=== PATIENT | female | born 1960 | race Caucasian/White ===

== ENCOUNTER 2016-05-13 08:19 | Day surgery (SDC) | payer BC, MEDICAID ==
[2016-05-13] MEDS ORDERED: LIDOCAINE 2% MDV (20MG/ML) 20ML VIAL IV ONE (14:28)
[2016-05-13] MEDS ORDERED: PROPOFOL 10 MG/ML VIAL IV ONE (14:28)
[2016-05-13] MEDS ORDERED: MIDAZOLAM HCL 2MG/2ML VIAL IV ONE (14:28)
--- NOTE | 2016-05-16 14:11 | Operative Note ---
DATE OF SURGERY: 05/13/2016 SURGEON: Will Granados MD OPERATION: COLONOSCOPY. INDICATIONS: This is a 55-year-old male with history of colorectal cancer who presented for surveillance colonoscopy. POSTOPERATIVE DIAGNOSES: 1. Normal ileocolonic anastomosis. 2. A 2 mm sessile rectal polyp that was removed by cold biopsy forceps. 3. Grade 1 internal hemorrhoids. ANESTHESIA: Sedation is per Anesthesia. Pulse oximetry was monitored throughout the procedure to maintain O2 saturation of 90% or greater. Supplemental oxygen was administered via nasal cannula. Cardiac and vital signs were monitored throughout the duration of the procedure, and they were stable. The procedure of colonoscopy and risks and alternatives of the procedure, including the risk of bleeding and perforation, among others, were explained to the patient who voiced understanding and agreed to have the procedure done. Physical examination was performed, and the patient was found stable for sedation. PROCEDURE: The patient was placed in the left lateral position. Sedation was initiated. A digital rectal exam was performed and showed some mild external hemorrhoids with no palpable rectal masses. An Olympus PCF-180AL colonoscope was then inserted into the rectum under direct visualization. It was advanced to the cecum without difficulty. The ileocecal valve and appendiceal orifice were identified and photographed. The colonic mucosa was carefully examined upon introduction of the colonoscope. There were no lesions noted. The colonoscope was then advanced to the terminal ileum without any difficulty. The colonic mucosa was carefully examined upon introduction of the colonoscope. There were no lesions noted. The ileocolonic anastomosis was normal. The colonoscope was then withdrawn while carefully examining the colonic mucosal surfaces. No other lesions were noted. In the rectum, a 2 mm sessile polyp was noted and was removed by cold biopsy forceps. There were no other lesions noted. The colonoscope was then withdrawn and the procedure was terminated. The patient tolerated the procedure well without any immediate complications. He remained with stable vital signs and was transferred to the recovery room. RECOMMENDATIONS: 1. The patient should be on a high-fiber diet. 2. The patient is to have a surveillance colonoscopy for in 2 years. Thank you for allowing me to participate in the care of your patient. Will Granados MD CC: Dr. Rodney ALVARES
== END 2016-05-13 10:33 | disposition home or self-care (01) ==
LOC: HOP 08:19
PROVIDERS: ATTEND Internal Medicine Gastroenterology
DX: Z08 Encounter for follow-up examination after completed treatment for malignant neoplasm (principal); R56.9 Unspecified convulsions; Z85.038 Personal history of other malignant neoplasm of large intestine; K62.1 Rectal polyp; K64.0 First degree hemorrhoids

== ENCOUNTER 2017-06-30 07:13 | Day surgery (SDC) | payer BC, MEDICAID ==
[2017-06-30] MEDS ORDERED: LIDOCAINE 2% MDV (20MG/ML) 20ML VIAL IV ONE (07:14)
[2017-06-30] MEDS ORDERED: PROPOFOL 10 MG/ML VIAL IV ONE (07:14)
--- NOTE | 2017-07-04 12:20 | Operative Note ---
DATE OF SURGERY: 06/30/2017 SURGEON: Will Granados MD OPERATION: COLONOSCOPY. INDICATIONS: This is a 57-year-old female with history of colon polyps who presented for surveillance colonoscopy. POSTOPERATIVE DIAGNOSES: 1. Normal ileocolonic anastomosis. 2. Otherwise normal colon. ANESTHESIA: Sedation is per Anesthesia. Pulse oximetry was monitored throughout the procedure to maintain O2 saturation of 90% or greater. Supplemental oxygen was administered via nasal cannula. Cardiac and vital signs were monitored throughout the duration of the procedure, and they were stable. The procedure of colonoscopy and risks and alternatives of the procedure, including the risk of bleeding and perforation, among others, were explained to the patient who voiced understanding and agreed to have the procedure done. Physical examination was performed, and the patient was found stable for sedation. PROCEDURE: The patient was placed in the left lateral position. Sedation was initiated. A digital rectal exam was performed and showed some mild external hemorrhoids with no palpable rectal masses. An Olympus PCF-180AL colonoscope was then inserted into the rectum under direct visualization. It was advanced to the cecum without difficulty. The ileocecal valve and appendiceal orifice were identified and photographed. The colonic mucosa was carefully examined upon introduction of the colonoscope. There were no lesions noted. The ileocolonic anastomosis appeared normal. The colonoscope was then withdrawn while carefully examining the colonic mucosal surfaces. No other lesions were noted. In the rectum, retroflexion was performed and grade 1 internal hemorrhoids were noted. The colonoscope was then withdrawn and the procedure was terminated. The patient tolerated the procedure well without any immediate complications. She remained with stable vital signs and was transferred to the recovery room. RECOMMENDATIONS: 1. The patient should be on a high-fiber diet. 2. The patient is to have a repeat colonoscopy in 3 years. Thank you for allowing me to participate in the care of your patient. CC: DO DIA Fenton
== END 2017-06-30 09:24 | disposition home or self-care (01) ==
LOC: HOP 07:13
PROVIDERS: ATTEND Internal Medicine Gastroenterology
DX: Z12.11 Encounter for screening for malignant neoplasm of colon (principal); Z86.010 Personal history of colon polyps; R56.9 Unspecified convulsions
CPT/HCPCS: 00812; G0105

== ENCOUNTER 2018-01-29 08:15 | Emergency (ER) | payer BC, MEDICAID ==
--- NOTE | 2018-01-29 08:32 | Emergency Department Record ---
History of Present Illness - General Chief complaint: Vomiting Stated complaint: VOMITING Time Seen by Provider: 01/29/18 08:25 Source: Patient Mode of Arrival: Ambulatory Limitations: No limitations - History of Present Illness Initial comments: The patient is here due to upper AP for the last 9 hours. The pain is sharp and crampy in the epigastric area and radiates around to the R side. She has had frequent nausea and vomiting with very little loose stools. The patient has had multiple surgeries on her abdomen including an APPY, DELMI, and colon surgery for CA. MD complaint: Abdominal pain, Nausea, Vomiting Onset/Timin -: Hour(s) Location: RUQ, Epigastric Radiation: Back Severity: Severe Severity scale (1-10): 9 Quality: Sharp Consistency: Constant Improves with: None Worsens with: None Associated Symptoms: Nausea/vomiting - Related Data Home Medications Medication Instructions Recorded Confirmed Last Taken Lamotrigine 400 mg PO BID 01/29/18 01/29/18 Unknown Allergies Allergy/AdvReac Type Severity Reaction Status Date / Time nut - unspecified Allergy Severe ANAPHYLAXIS Verified 01/29/18 08:22 Travel Screening - Travel/Exposure Within Last 30 Days Have you traveled within the last 30 days?: No Review of Systems Constitutional: Denies: Chills, Fever Eyes: Denies: Eye discharge ENT: Denies: Congestion Respiratory: Denies: Cough, Dyspnea Cardiovascular: Denies: Chest pain Endocrine: Denies: Fatigue Gastrointestinal: Reports: Abdominal pain, Nausea, Vomiting Genitourinary: Denies: Dysuria Musculoskeletal: Denies: Arthralgia Skin: Denies: Bruising Past Medical History - SOCIAL HISTORY Smoking Status: Never smoker Alcohol Use: None Drug Use: None - RESPIRATORY Hx Respiratory Disorders: No - CARDIOVASCULAR Hx Cardio Disorders: No - NEURO Hx Neuro Disorders: Yes Hx Seizures: Yes (last one-July 2015) - GI Hx GI Disorders: Yes Hx of Polyps: Yes - Hx Genitourinary Disorders: No - ENDOCRINE Hx Endocrine Disorders: No - MUSCULOSKELETAL Hx Musculoskeletal Disorders: Yes Hx Back Injury: Yes (1979-at work) Hx Osteoporosis: Yes Comment:: currently in full wrap cast to left leg from a recent fall. - PSYCH Hx Psych Problems: Yes Hx Anxiety: Yes Hx Depression: Yes - HEMATOLOGY/ONCOLOGY Hx Hematology/Oncology Disorders: Yes Hx Cancer: Yes (colon) Hx Chemotherapy: No Hx Radiation Therapy: No Comment:: small cancerous polyp Family Medical History Any Significant Family History?: Yes Hx Diabetes: Father, Grandparents Physical Exam - General General Appearance: Alert, Oriented x3, Cooperative, No acute distress - Head Head exam: Atraumatic, Normocephalic - Eye Eye exam: Normal appearance, PERRL - ENT Throat exam: Normal inspection. negative: Tonsillar erythema, Tonsillar exudate - Neck Neck exam: Normal inspection, Full ROM. negative: Tenderness - Respiratory Respiratory exam: Normal lung sounds bilaterally. negative: Respiratory distress - Cardiovascular Cardiovascular Exam: Regular rate, Normal rhythm, Normal heart sounds - GI/Abdominal GI/Abdominal exam: Soft, Normal bowel sounds, Tenderness (There is diffuse RUQ and lower abdominal tenderness with no guarding or rebound.). negative: Guarding, Rebound, Rigid - Extremities Extremities exam: Normal inspection, Full ROM, Normal capillary refill. negative: Tenderness Course Vital Signs 01/29/18 08:18 Temperature 97.7 F Pulse Rate 98 H Respiratory 20 Rate Blood Pressure 169/107 Pulse Ox 99 - Reevaluation(s) Reevaluation #1: The patient is feeling better but still having some pain. I did discuss the lab results with Dr. Caruso and he would like the patient transferred to [facility] for an MRCP. I did discuss this with the patient and she does agree to the plan. 01/29/18 10:02 Reevaluation #2: The patient was doing a lot better at discharge and the pain was much improved. 01/29/18 10:37 Medical Decision Making - Data Complexity MDM Data: Labs Ordered and/or Reviewed, X-Ray Ordered and/or Reviewed - Lab Data Result diagrams: 01/29/18 08:45 01/29/18 08:30 - Radiology Data Radiology results: Report reviewed (CT: Distended GB with some fat stranding. No definite gallstone.) Disposition Disposition: Transfer Clinical Impression: Cholecystitis Disposition: Acute Care Hospital Transfer Transfer To: [facility] Reason For Transfer: Surgery Accepting Physician: Shady Time Discussed w/Accepting Physician: 10:04 Condition: (2) Stable Instructions: Acute Nausea and Vomiting (ED) Forms: Patient Portal Access Time of Disposition: 10:04 Quality - Quality Measures Quality Measures: N/A - Blood Pressure Screening View Details: Yes Does Patient Have Any of the Following: No Blood Pressure Classification: Pre-Hypertensive BP Reading Systolic Measurement: 165 Diastolic Measurement: 89 Screening for High Blood Pressure: < Pre-Hypertensive BP, F/U Documented > [ G8950] Pre-Hypertensive Follow-up Interventions: Referral to alternative/primary care provider.
[2018-01-29] MEDS ORDERED: ONDANSETRON HCL IV 4 MG/2 ML VIAL IV ONE (08:34)
[2018-01-29] MEDS ORDERED: 0.9 % SODIUM CHLORIDE 1,000 ML BAG IV ONE (08:34)
[2018-01-29] MEDS ORDERED: HYDROMORPHONE HCL 2 MG/ML VIAL IVP ONE ×2 (08:35→09:57)
[2018-01-29 08:53] LABS: BASO % 0.1 % (0-6); HEMATOCRIT 41.5 % (35.0-47.0); HEMOGLOBIN 13.3 gm/dl (11.6-16.0); LYMPH % 10.3 % (16-45); MEAN CELL VOLUME 95.6 fl (81-97); MEAN CORPUSCULAR HEMOGLOBIN 30.6 pg (27-33); MEAN PLATELET VOLUME 10.3 fl (7.4-10.4); MONO % 9.6 % (0-9); PLATELET COUNT 289 K/uL (130-400); RED BLOOD COUNT 4.34 M/uL (3.80-5.40); RED CELL DISTRIBUTION WIDTH 13.9 % (11.5-14.5); URINE APPEARANCE CLEAR; URINE BILIRUBIN NEGATIVE (NEGATIVE); URINE BLOOD TRACE-I (NEGATIVE); URINE COLOR YELLOW; URINE GLUCOSE (UA) NEGATIVE (NEGATIVE); URINE KETONE NEGATIVE (NEGATIVE); URINE LEUKOCYTE ESTERASE NEGATIVE (NEGATIVE); URINE NITRITE NEGATIVE (NEGATIVE); URINE PROTEIN TRACE (NEGATIVE); URINE UROBILINOGEN 0.2 E.U./dL (0.20 - 1.00); WHITE BLOOD COUNT W/O DIFF 8.9 K/uL (4.2-12.2)
[2018-01-29 09:00] LABS: URINE EPITHELIAL CELLS 0 - 2 (FEW); URINE RBC 0 - 2 (NONE SEEN); URINE WBC 0 - 2 (0-2/hpf)
[2018-01-29 09:02] LABS: BLOOD UREA NITROGEN 11 mg/dL (6-20)
[2018-01-29 09:03] LABS: CREATININE 0.6 mg/dL (0.5-0.9); EST GLOMERULAR FILTRATION RATE > 60 mL/min; TOTAL PROTEIN 8.4 g/dL (6.6-8.7)
[2018-01-29 09:05] LABS: GLUCOSE,RANDOM 148 mg/dL (74-109)
[2018-01-29 09:08] LABS: ALBUMIN 4.8 g/dL (4.0-5.0); ALKALINE PHOSPHATASE 166 U/L (35-104); ALT/SGPT 156 U/L (<33); AST/SGOT 439 U/L (10.0-35.0); LIPASE 59 U/L (13-60)
[2018-01-29] MEDS ORDERED: ERTAPENEM SODIUM 1 G in 0.9 % SODIUM CHLORIDE 100ML 100 ML IVPB ONE (09:57)
--- NOTE | 2018-01-30 06:32 | CT SCAN REPORT ---
EXAM: NONCONTRAST CT OF THE ABDOMEN AND PELVIS HISTORY: BACK PAIN, VOMITING. HISTORY OF COLON CANCER STATUS POST RESECTION. PRIOR APPENDECTOMY AND HYSTERECTOMY. TECHNIQUE: Noncontrast CT of the abdomen and pelvis was obtained. Comparison: CT of the abdomen and pelvis 05/11/15. FINDINGS: Minimal left basilar atelectasis. The lung bases are otherwise clear. Unremarkable noncontrast appearance of the liver, spleen, adrenal glands, and pancreas. Mild distention of the gallbladder. Suggestion of minimal pericholecystic fat stranding. Small left renal pelvic cysts. No hydronephrosis. No definite calculi. Nonspecific central mesenteric haziness, similar from comparison. Status post right hemicolectomy with right upper abdominal quadrant ileocolic anastomosis. No focal colonic thickening or inflammatory changes. The stomach and small bowel are nondilated. No free air or free fluid. The abdominal aorta appears nondilated. No definite acute osseous findings. IMPRESSION: 1. THE GALLBLADDER APPEARS MILDLY DISTENDED WITH MINIMAL PERICHOLECYSTIC FAT STRANDING. NO DEFINITE GALLSTONES ARE VISIBLE BY CT. IF THERE IS SUSPICION FOR GALLBLADDER PATHOLOGY, FURTHER EVALUATION WITH ULTRASOUND MAY BE OF BENEFIT. 2. OTHERWISE NO DEFINITE ACUTE INTRAABDOMINAL FINDINGS. 3. STATUS POST RIGHT HEMICOLECTOMY. 4. MILD NONSPECIFIC HAZINESS OF THE CENTRAL MESENTERY, SIMILAR FROM CT COMPARISON ON APRIL OF 2015. JOB NUMBER: [id number] MTDD
== END 2018-01-29 10:36 | disposition short-term general hospital (02) ==
LOC: ER 08:15
DX: K81.0 Acute cholecystitis (principal); R11.2 Nausea with vomiting, unspecified; Z85.038 Personal history of other malignant neoplasm of large intestine
CPT/HCPCS: 99285 ×2; 96376; 96374; 96375; 83690; 85025; 80076; 80048; 81001; 74176; J1335; J2405; J1170; J7030

== ENCOUNTER 2018-02-18 14:37 | Emergency (ER) | payer BC ==
--- NOTE | 2018-02-18 14:49 | Emergency Department Record ---
History of Present Illness - General Chief Complaint: General Stated Complaint: GALLBLADDER REMOVED, INCISION SITE BLEEDING Time Seen by Provider: 02/18/18 14:46 Source: Patient, Family Mode of Arrival: Ambulatory Limitations: No limitations - History of Present Illness Initial Comments: 57 yo female presents with concern about bleeding from her surgery site from gall bladder removal about three weeks ago. Dr Caruso is her surgeon. She was noted to have a "bump" in that area post operatively. Dr Caruso examined her and started her on antibiotics. Today in the shower she had a large amount of thin dark bloody drainage. No pus or oder. The area is now minimally draining. No fever, no redness, no pus. -: Hour(s) Location: Periumbilical Radiation: Other (None) Severity: Mild Quality: Other (No pain) Consistency: Now resolved Improves With: Other (Drained) Worsens With: Nothing Context: Recent surgery/procedure - Related Data Allergies Allergy/AdvReac Type Severity Reaction Status Date / Time nut - unspecified Allergy Severe ANAPHYLAXIS Verified 02/18/18 14:41 Travel Screening - Travel/Exposure Within Last 30 Days Have you traveled within the last 30 days?: No Review of Systems Constitutional: Denies: Chills, Fever, Malaise, Weakness Eyes: Denies: Eye discharge ENT: Denies: Congestion, Throat pain Respiratory: Denies: Cough Cardiovascular: Denies: Chest pain, Syncope Endocrine: Denies: Fatigue Gastrointestinal: Denies: Abdominal pain, Diarrhea, Nausea, Vomiting Genitourinary: Denies: Dysuria Musculoskeletal: Denies: Arthralgia, Back pain, Myalgia Skin: Denies: Bruising, Change in color, Rash Neurological: Denies: Headache Psychiatric: Denies: Anxiety Hematological/Lymphatic: Denies: Easy bleeding, Easy bruising Past Medical History - SOCIAL HISTORY Smoking Status: Never smoker Alcohol Use: None Drug Use: None - RESPIRATORY Hx Respiratory Disorders: No - CARDIOVASCULAR Hx Cardio Disorders: No - NEURO Hx Neuro Disorders: Yes Hx Seizures: Yes (last one-July 2015) - GI Hx GI Disorders: Yes Hx of Polyps: Yes - Hx Genitourinary Disorders: No Comment:: hysterectomy - ENDOCRINE Hx Endocrine Disorders: No Hx Diabetes: No Hx Thyroid Disease: No - MUSCULOSKELETAL Hx Musculoskeletal Disorders: Yes Hx Back Injury: Yes (1979-at work) Hx Osteoporosis: Yes Comment:: currently in full wrap cast to left leg from a recent fall. - PSYCH Hx Psych Problems: Yes Hx Anxiety: Yes Hx Depression: Yes - HEMATOLOGY/ONCOLOGY Hx Hematology/Oncology Disorders: Yes Hx Cancer: Yes (colon) Hx Chemotherapy: No Hx Radiation Therapy: No Comment:: small cancerous polyp Family Medical History Any Significant Family History?: Yes Hx Diabetes: Father, Grandparents Physical Exam - General General Appearance: Alert, Oriented x3, Cooperative, No acute distress Limitations: No limitations - Head Head exam: Atraumatic, Normal inspection - Eye Eye exam: Normal appearance - ENT ENT exam: Normal exam Ear exam: Normal external inspection Nasal Exam: Normal inspection Mouth exam: Normal external inspection - Neck Neck exam: Normal inspection - GI/Abdominal GI/Abdominal exam: Soft, Other (small opening in the umbilical incision is draining a dark thin blood, no pus, no foul odor,no erythema). negative: Distended, Guarding, Rebound, Rigid, Tenderness - Rectal Rectal exam: Deferred - exam: Deferred - Extremities Extremities exam: Normal inspection - Neurological Neurological exam: Alert, Oriented X3 - Psychiatric Psychiatric exam: Normal affect, Normal mood - Skin Skin exam: Dry, Intact, Normal color, Warm Course Vital Signs 02/18/18 14:42 Temperature 98.2 F Pulse Rate 83 Respiratory 18 Rate Blood Pressure 151/96 Pulse Ox 98 - Reevaluation(s) Reevaluation #1: 02/18/18 15:14 The area is likely a draining/drained hematoma. No signs of infection This was discussed with Dr Caruso. She will be given dressing and call follow up if need in the office this week Disposition Disposition: Discharge Clinical Impression: Hematoma Disposition: Home, Self-Care Condition: (1) Good Instructions: Hematoma (ED) Additional Instructions: Change the dressings as needed Return if worse, pain, fever, swelling, Call Dr Caruso for follow up this week if needed Forms: Patient Portal Access Time of Disposition: 15:16 Quality - Quality Measures Quality Measures: N/A - Blood Pressure Screening Does Patient Have Any of the Following: No Blood Pressure Classification: Hypertensive Reading Systolic Measurement: 151 Diastolic Measurement: 96 Screening for High Blood Pressure: < Pre-Hypertensive BP, F/U Documented > [ G8950] Pre-Hypertensive Follow-up Interventions: Referral to alternative/primary care provider.
== END 2018-02-18 15:28 | disposition home or self-care (01) ==
LOC: ER 14:37
DX: L76.32 Postprocedural hematoma of skin and subcutaneous tissue following other procedure (principal); R10.33 Periumbilical pain; Y83.8 Other surgical procedures as the cause of abnormal reaction of the patient, or of later complication, without mention of misadventure at the time of the procedure
CPT/HCPCS: 99282